=== PATIENT | female | born 1965 | race Asian ===

== ENCOUNTER → 2019-06-22 | Outpatient (CLI) | payer OTHER ==
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
--- NOTE | 2019-06-22 13:53 | EKG REPORT ---
SEVERITY:- NORMAL ECG - SINUS RHYTHM : Confirmed by: Israel Chahal MD 22-Jun-2019 13:52:34
== END ==
LOC: RAD 10:53
PROVIDERS: ATTEND Family Medicine
DX: R07.81 Pleurodynia (principal); R00.2 Palpitations
CPT/HCPCS: 93005; 93010

== ENCOUNTER 2020-01-08 12:05 | Emergency (ER) | payer OTHER ==
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
[2020-01-08 13:39] LABS: ABSOLUTE EOSINOPHILS # (AUTO) 0.1 10^3/uL (0.0-0.6); ABSOLUTE LYMPHOCYTES (AUTO) 1.1 10^3/uL (0.5-4.7); ABSOLUTE MONOCYTES (AUTO) 0.3 10^3/uL (0.1-1.4); BASOPHILS % (AUTO) 0.6 % (0-2); EOSINOPHILS % (AUTO) 1.5 % (0-6); HEMOGLOBIN 15.1 g/dL (12.0-15.5); LYMPHOCYTES % (AUTO) 24.7 % (13-45); MEAN CORPUSCULAR HEMOGLOBIN 32.5 pg (27.0-33.4); MEAN CORPUSCULAR HGB CONC 33.5 g/dL (32.0-36.0); MEAN CORPUSCULAR VOLUME 97 fl (80-97); MONOCYTES % (AUTO) 7.5 % (3-13); PLATELET COUNT 226 10^3/uL (150-450); RED BLOOD COUNT 4.65 10^6/uL (3.72-5.28); RED CELL DISTRIBUTION WIDTH 13.3 % (11.5-14.0); SEGMENTED NEUTROPHILS % (AUTO) 65.7 % (42-78); TOTAL CELLS COUNTED % (AUTO) 100 %; WHITE BLOOD COUNT 4.5 10^3/uL (4.0-10.5)
[2020-01-08 13:43] LABS: APPEARANCE,URINE SLIGHTLY-CLOUDY; BILIRUBIN,URINE NEGATIVE (NEGATIVE); COLOR,URINE STRAW; GLUCOSE, URINE NEGATIVE (NEGATIVE); KETONES,URINE NEGATIVE (NEGATIVE); PROTEIN,URINE NEGATIVE (NEGATIVE); URINE SPECIFIC GRAVITY 1.006; UROBILINOGEN,URINE NEGATIVE mg/dL (<2.0)
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
[2020-01-08 14:03] LABS: ALBUMIN 4.6 g/dL (3.5-5.0); ALKALINE PHOSPHATASE 67 U/L (38-126); ANION GAP 8 (5-19); ASPARTATE AMINO TRANSFERASE 48 U/L (14-36); BILIRUBIN,DIRECT 0.2 mg/dL (0.0-0.4); BILIRUBIN,TOTAL 0.3 mg/dL (0.2-1.3); BLOOD UREA NITROGEN 14 mg/dL (7-20); CALCIUM 9.5 mg/dL (8.4-10.2); CARBON DIOXIDE 29 mmol/L (22-30); CHLORIDE 103 mmol/L (98-107); GLUCOSE 98 mg/dL (75-110); POTASSIUM 4.2 mmol/L (3.6-5.0)
--- NOTE | 2020-01-08 14:36 | EKG REPORT ---
SEVERITY:- NORMAL ECG - SINUS RHYTHM : Confirmed by: Shreya Ceja MD 08-Jan-2020 14:34:21
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
--- NOTE | 2020-01-08 20:54 | RADIOLOGY REPORT (SQ) ---
EXAM DESCRIPTION: Thyroid ultrasound CLINICAL HISTORY: 54 years Female; thyroid lesion per CT TECHNIQUE: Thyroid ultrasound with grayscale and Doppler as appropriate. COMPARISON: CT scan of the chest obtained earlier in the day. FINDINGS: Thyroid size: Right lobe: The lobe measures 6.0 x 1.8 x 1.6 cm. Echogenicity is homogeneous. In the central portion of the gland is a 1.1 x 0.9 x 0.8 cm cystic nodule with internal septations. No appreciable vascularity. The area is wider than it is tall and has no appreciable calcifications. This appears benign with a TR1. Isthmus: 3 mm. Homogeneous. Left lobe: The gland measures 4.9 x 1.3 x 1.2 cm and is homogeneous in echotexture. There is normal vascularity. No nodules. Lymph nodes: No enlarged or suspicious lymph nodes. IMPRESSION: Benign-appearing minimally complex cyst in the right side of the gland. No follow-up is indicated. ACR TI-RADS recommendations: TR5 (>=7 points) - FNA if >=1 cm, follow-up if 0.5 - 0.9 cm every year for 5 years TR4 (4-6 points) - FNA if >=1.5 cm, follow-up if 1 - 1.4 cm in 1, 2, 3 and 5 years TR3 (3 points) - FNA if >=2.5 cm, follow -up if 1.5 - 2.4 cm in 1, 3 and 5 years TR2 (2 points) and TR1 (0 points) - No FNA or follow-up * ACR TI-RADS recommends that no more than two nodules with the highest ACR TI-RADS total point should be biopsied and no more than four nodules should be followed.
[2020-01-08] MEDS ORDERED: HYDROCODONE/ACETAMINOPHEN 5-325 MG (6 TAB/ER DISP) PO PRN (21:00)
[2020-01-08 21:25] VITALS: BP 132/70
== END 2020-01-08 21:26 | disposition home or self-care (01) ==
LOC: ER 12:05
DX: M25.562 Pain in left knee (principal); M25.561 Pain in right knee; R07.89 Other chest pain; R40.20 Unspecified coma; V43.52XA Car driver injured in collision with other type car in traffic accident, initial encounter; M54.5 Low back pain
CPT/HCPCS: 36415; 70450; 71046; 71260; 76536; 80053; 81001; 84484; 84702; 85025; 93005; 93010; 99284

== ENCOUNTER → 2020-02-04 | Outpatient (CLI) | payer OTHER ==
--- NOTE | 2020-02-04 08:35 | RADIOLOGY REPORT (SQ) ---
EXAM DESCRIPTION: U/S ABDOMEN LIMITED W/O DOP IMAGES COMPLETED DATE/TIME: 02/04/2020 8:04 am REASON FOR STUDY: ELEVATED LIVER ENZYMES (R74.8) R74.8 ABNORMAL LEVELS OF OTHER SERUM ENZYMES COMPARISON: None. TECHNIQUE: Dynamic and static grayscale images acquired of the abdomen and recorded on PACS. Additio nal selected color Doppler and spectral images recorded. LIMITATIONS: None. FINDINGS: PANCREAS: The visualized portions of the pancreas appear normal. LIVER: Normal contour and echotexture. LIVER VASCULATURE: Hepatopetal directional flow within the portal veins. The hepatic veins are paten t. GALLBLADDER: The gallbladder wall measures 2 mm in thickness. There is no cholelithiasis, sludge or pericholecystic fluid. ULTRASOUND-DETECTED BARKER'S SIGN: Negative. INTRAHEPATIC DUCTS AND COMMON DUCT: The common bile duct measures 3 mm in diameter. The intrahepatic bile ducts are normal in caliber. INFERIOR VENA CAVA: Patent. AORTA: No aneurysm. RIGHT KIDNEY: The right kidney measures 10.1 cm in length. There is no hydronephrosis. PERITONEAL AND RIGHT PLEURAL SPACE: No ascites or effusions. OTHER: No other findings. IMPRESSION: No abnormality of the right upper quadrant. TECHNICAL DOCUMENTATION: JOB ID: [id number] 2010 [employer]- All Rights Reserved Reading location - IP/workstation name: [email or web address]
== END ==
LOC: RAD 07:13
PROVIDERS: ATTEND Family Medicine
DX: R74.8 Abnormal levels of other serum enzymes (principal)
CPT/HCPCS: 76705

== ENCOUNTER → 2020-06-12 | Outpatient (CLI) | payer OTHER ==
--- NOTE | 2020-06-12 19:19 | RADIOLOGY REPORT (SQ) ---
EXAM DESCRIPTION: KNEE LEFT 4 VIEW IMAGES COMPLETED DATE/TIME: 06/12/2020 4:15 pm REASON FOR STUDY: M25.562 PAIN IN LEFT KNEE M25.562 PAIN IN LEFT KNEE COMPARISON: None. NUMBER OF VIEWS: Four views. TECHNIQUE: AP, lateral, and both oblique radiographic images acquired of the left knee. LIMITATIONS: None. FINDINGS: MINERALIZATION: Normal. BONES: No acute fracture or dislocation. No worrisome bone lesions. JOINT: No effusion. SOFT TISSUES: No soft tissue swelling. No radio-opaque foreign body. OTHER: No other significant finding. IMPRESSION: NEGATIVE STUDY OF THE LEFT KNEE. NO RADIOGRAPHIC EVIDENCE OF ACUTE INJURY. TECHNICAL DOCUMENTATION: JOB ID: [id number] 2010 [employer]- All Rights Reserved Reading location - IP/workstation name: [email or web address]
== END ==
LOC: RAD 16:04
PROVIDERS: ATTEND Family Medicine
DX: M25.562 Pain in left knee (principal)